=== PATIENT | male | born 1955 | race Caucasian/White ===

== ENCOUNTER → 2021-09-28 10:46 | Outpatient (BNVA) | payer MEDICARE, SELFPAY | PROVIDERS: PCP Internal Medicine; Visit Provider Internal Medicine | DX: Z01.812 Encounter for preprocedural laboratory examination (principal); Z20.822 Contact with and (suspected) exposure to COVID-19 | CPT/HCPCS: 87635 ==

== ENCOUNTER 2021-10-04 07:18 | Day surgery (SDC) | payer MEDICARE, SELFPAY ==
[2021-09-30 14:14] VITALS: BMI 18.3
--- NOTE | 2021-10-04 07:04 | W.PM.OPSFHP ---
Same Day Surgery H&P Indication for Procedure/HPI DATE OF PROCEDURE: October 04, 2021 CHIEF COMPLAINT/INDICATIONFOR SURGICAL PROCEDURE: Screening for colon cancer PREOP DIAGNOSIS: Screen for colon cancer PLANNED PROCEDRUE: Operation Date: 10/04/21 08:15 Proposed Procedures p [id number]/screening cor colorectal cancer Z12.11(Not Applicable) - Raghavendra Wolf MD Medications/Allergies* Home Medications Medication Instructions Recorded Confirmed Type omeprazole 20 mg PO DAILY 09/30/21 09/30/21 History Allergies/Adverse Reactions Allergy/AdvReac Type Severity Reaction Status Date / Time No Known Allergies Allergy Verified 09/21/21 10:03 Pertinent History/Comorbid Conditions* Social History Smoking and tobacco status: never smoked Adopted: No Marital status: Single service: No History of recent travel: No Pertinent Exam Findings alert, oriented x 3, clear to auscultation bilaterally, regular rate & rhythm, operative site marked and procedure specific exam findings Recommendations Surgery/Procedure today Coding Level of Care Code Acute Bed Laborer for Sameer Pacheco
--- NOTE | 2021-10-04 07:35 | ANES.PREANE2 ---
Pre-Anesthetic Assessment Pre-Anesthetic Assessment: Height/Weight: Height 1.83 m Weight 61.235 kg Preop Diagnosis: Screening Proposed Procedure: Operation Date: 10/04/21 08:15 Proposed Procedures p [id number]/screening cor colorectal cancer Z12.11(Not Applicable) - Raghavendra Wolf MD Familial anesthetic complications: none Last intake: > 8hrs Social: Social History: No alcohol and No tobacco Exam: Pre-Anes Outpt Exam: alert, oriented x 3, clear to auscultation bilaterally and regular rate & rhythm Airway: MP: 2 Dentition: Other (missing) GI: GI: GERD Anesthetic Plan: ASA status: 1 Anesthesia: MAC Risk of > 500 ml blood loss (7ml/kg in children): No PFSH Anesthesia PFSH: Social History (Updated 09/21/21 @ 10:07 by ROSEANNE Fowler) Smoking and tobacco status: never smoked Adopted: No Marital status: Single service: No History of recent travel: No Data Anesthesia Cardiac Studies: No Data to Display
[2021-10-04 07:55] VITALS: BP 133/96; PULSE 92; RESP 18; O2SAT 98
[2021-10-04] MEDS: sodium chloride 0.9% 1,000 ML 30 ML IV (08:17)
[2021-10-04 09:15] VITALS: BP 110/64; PULSE 82; RESP 16; TEMP 36.2; O2SAT 100
--- NOTE | 2021-10-04 14:07 | ANE.PACU2 ---
Inpatient post-anesthesia follow up: Airway intact: Yes Vital signs: Temperature 97.2 F Pulse Rate 82 Respiratory Rate 16 Blood Pressure 110/64 Pulse Oximetry 100 Oxygen Delivery Me thod Room Air Oxygen Flow Rate Fraction of Inspir ed Oxygen Hydration adequate: Yes Nausea and vomiting: No Pain level: 1 Mental status: Baseline
== END 2021-10-04 09:50 | disposition home or self-care (01) ==
PROVIDERS: PCP Internal Medicine; Visit Provider Internal Medicine
PROC: 0DJD8ZZ Inspection of Lower Intestinal Tract, Via Natural or Artificial Opening Endoscopic (ICD-10-PCS; CPT 45378; principal; 2021-10-04 08:15)
DX: Z12.11 Encounter for screening for malignant neoplasm of colon (principal); K21.9 Gastro-esophageal reflux disease without esophagitis
CPT/HCPCS: G0121; J2704; J7030

== ENCOUNTER → 2021-11-26 08:43 | Outpatient (BNVA) | payer MEDICARE, SELFPAY | PROVIDERS: PCP Internal Medicine; Visit Provider Urology | DX: R97.20 Elevated prostate specific antigen [PSA] (principal) | CPT/HCPCS: 81003; 84153 ==